=== PATIENT | male | born 2000 | race African-American/Black ===

== ENCOUNTER 2023-07-28 13:19 | Emergency (ER) | payer OTHER ==
[~2023-07-28] VITALS: Ht 170.2 cm; Wt 70.3 kg
[2023-07-28 15:19] LABS: Trichomonas vaginalis (AMP) NOT DETECTED (NEGATIVE)
[2023-07-28 15:26] LABS: BASO # 0.1 10^3/uL (0.0-0.2); BASO % 0.9 % (0.0-1.0); EOS # 0.8 10^3/uL (0.0-0.5); EOS % 10.4 % (0.0-3.0); HEMATOCRIT 43.2 % (42.0-52.0); HEMOGLOBIN 14.8 g/dl (13.5-17.5); LYMPH # 2.5 10^3/uL (1.5-5.0); LYMPH % 31.9 % (24.0-44.0); MEAN CORPUSCULAR HEMOGLOBIN 30.2 pg (27.0-33.0); MEAN CORPUSCULAR HGB CONC 34.3 g/dl (32.0-36.5); MEAN CORPUSCULAR VOLUME 88.2 fl (80.0-96.0); MONO # 0.5 10^3/uL (0.0-0.8); MONO % 6.9 % (2.0-8.0); NEUTROPHILS # 3.8 10^3/uL (1.5-8.5); NEUTROPHILS % 49.8 % (36.0-66.0); PLATELET COUNT, AUTOMATED 234 10^3/uL (150-450); WHITE BLOOD COUNT 7.7 10^3/uL (4.0-10.0)
[2023-07-28 15:44] LABS: GC DNA AMPLIFICATION NEGATIVE (NEGATIVE)
[2023-07-28 15:51] LABS: BLOOD UREA NITROGEN 13 MG/DL (9-23); CALCIUM LEVEL 9.3 MG/DL (8.5-10.1); CARBON DIOXIDE LEVEL 30 MMOL/L (20-31); CHLORIDE LEVEL 103 MMOL/L (98-107); CREATININE FOR GFR 1.03 MG/DL (0.70-1.30); GLUCOSE, FASTING 95 MG/DL (60-100); POTASSIUM SERUM 4.3 MMOL/L (3.5-5.1); SODIUM LEVEL 138 MMOL/L (136-145)
[2023-07-28 16:09] VITALS: BP 146/77; TEMP 98.6; O2SAT 99
== END 2023-07-28 16:11 | disposition home or self-care (01) ==
LOC: M ED 13:19
DX: R31.1 Benign essential microscopic hematuria (principal); Z91.013 Allergy to seafood

== ENCOUNTER → 2024-04-09 | Outpatient (REF) | payer OTHER ==
[2024-04-09 17:12] LABS: INR 0.96; PROTHROMBIN TIME 13.1 SECONDS (12.5-14.5)
[2024-04-09 18:30] LABS: COMPLEMENT C3 149.8 MG/DL (82.0-160.0)
[2024-04-09 18:32] LABS: COMPLEMENT C4 27.6 MG/DL (12-36)
== END ==
LOC: M LAB REF 16:53
PROVIDERS: ATTEND Internal Medicine Nephrology
DX: R31.9 Hematuria, unspecified (principal)

== ENCOUNTER → 2024-05-07 | Outpatient (CLI) | payer OTHER ==
[~2024-05-07] MED LIST: ACETAMINOPHEN 325 MG TAB PO PRN; LIDOCAINE 1% MDV 20ML VIAL As Ordered ONE; MIDAZOLAM INJ 2MG/2ML VIAL As Ordered ONE; NS (Normal Saline) 0.9% 1,000 ML IV SCH; PERCOCET 5MG/325MG TAB PO PRN; fentaNYL 100 MCG/2 ML INJECTION As Ordered ONE
[2024-05-07 07:10] VITALS: TEMP 99
[2024-05-07] MEDS: fentaNYL 100 MCG/2 ML INJECTION IV PRN (08:34)
[2024-05-07] MEDS: MIDAZOLAM INJ 2MG/2ML VIAL IV PRN (08:34)
[2024-05-07] MEDS: LIDOCAINE 1% MDV 20ML VIAL SC ONE (08:34)
[2024-05-07 09:45] VITALS: BP 120/58; O2SAT 97
== END ==
LOC: M IRPRO 06:59
PROVIDERS: ATTEND Internal Medicine Nephrology
DX: R31.9 Hematuria, unspecified (principal)
CPT/HCPCS: 50200; 76942; 88300; 99152; J2250; J3010